=== PATIENT | male | born 1985 | race Caucasian/White ===

== ENCOUNTER 2022-06-07 09:07 | Emergency (ER) | payer BC ==
[~2022-06-07] VITALS: Ht 182.9 cm; Wt 83.6 kg
--- NOTE | ~2022-06-07 | EKG ---
[facility] [address] [place], [place] [address] Draft EK completed, results pending confirmation PATIENT NAME: ALLIE CASTILLO Electrocardiogram DATE OF : 89 PHYSICIAN: PRELIMINARY REPORT #: [id number] REPORT IS CONFIDENTIAL AND NOT TO BE RELEASED WITHOUT AUTHORIZATION
== END 2022-06-07 12:32 | disposition home or self-care (01) ==
LOC: ED 09:07
DX: S06.9X1A Unspecified intracranial injury with loss of consciousness of 30 minutes or less, initial encounter (principal); S16.1XXA Strain of muscle, fascia and tendon at neck level, initial encounter; R00.1 Bradycardia, unspecified; M89.9 Disorder of bone, unspecified; W17.89XA Other fall from one level to another, initial encounter
CPT/HCPCS: 70450; 72125; 93005; 93010; 99284-25

== ENCOUNTER 2022-07-11 14:15 | Emergency (ER) | payer BC ==
[~2022-07-11] VITALS: Ht 182.9 cm; Wt 83.6 kg
[2022-07-11] MEDS ORDERED: ATIVAN1 MG PO (19:40)
== END 2022-07-11 19:51 | disposition home or self-care (01) ==
LOC: ED 14:15
DX: R51.9 Headache, unspecified (principal)
CPT/HCPCS: 96374; 96375; 99283-25; A9270; J1100; J1885; J2060; J2765; J7030

== ENCOUNTER 2022-07-21 11:03 | Emergency (ER) | payer BC ==
[~2022-07-21 11:03] MED LIST: ATIVAN1 MG PO
--- OUTSIDE RECORDS SUMMARY | 2022-07-21 11:04 | XMS ---
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 Javi VISIT COUNT ([address] [facility] TOTAL 3 NOTE: Visits indicate total known visits. ED/C VISIT TRACKING (12 MO.) 07/21/2022 11:03 [facility] TYPE: Emergency COMPLAINT: - TRAUMA ADULT 07/11/2022 14:16 [facility] TYPE: Emergency COMPLAINT: - HEADACHE 06/07/2022 09:08 [facility] [place] TYPE: Emergency COMPLAINT: - NECK INJURY DIAGNOSES: - Other fall from one level to another, initial encounter - Bradycardia, unspecified - Dizziness and giddiness - Unspecified intracranial injury with loss of consciousness of 30 minutes or less, initial encounter - Strain of muscle, fascia and tendon at neck level, initial encounter - Disorder of bone, unspecified INPATIENT VISIT TRACKING (12 MO.) No inpatient visits to display in this time frame [email or web address]
== END 2022-07-21 13:12 | disposition short-term general hospital (02) ==
LOC: ED 11:03
DX: S06.9X9A Unspecified intracranial injury with loss of consciousness of unspecified duration, initial encounter (principal); G93.5 Compression of brain; W17.89XA Other fall from one level to another, initial encounter; Z20.822 Contact with and (suspected) exposure to COVID-19
CPT/HCPCS: 36415; 80053; 82150; 82553; 83605; 83690; 85025; 87502; 99284; C9803; G0480; U0003